=== PATIENT | male | born 1980 | race Caucasian/White ===

== ENCOUNTER 2023-05-21 15:17 | Emergency (ER) | payer OTHER, SELFPAY ==
[2023-05-21 15:40] VITALS: BP 131/79; PULSE 96; RESP 18; TEMP 36.2; O2SAT 98
--- NOTE | 2023-05-21 15:56 | ED.GENADULT ---
HPI - General Adult General Chief complaint: Ear Stated complaint: Dizzy, Light Headed Time Seen by Provider: 05/21/23 15:36 Source: patient Mode of arrival: ambulatory Limitations: no limitations History of Present Illness HPI narrative: 43-year-old male presented for complaint of dizziness for about 5 days. He describes the dizziness as constant, persistent, and unchanged with movement. States he feels like I'm in a fog. Denies room spinning. Endorses feeling out of breath with the exertion of moving a 4-hernandes, and reports occasional heartburn symptoms worse over the past few days as well. Taking Tums. Denies chest pain, palpitations, pain radiating to neck/jaw or back, diaphoresis, nausea, vomiting. Denies family hx of cardiac problems. States his school nurse told him he has fluid in the ear on exam. Endorses occasional crackles when swallowing. Denies ear pain, pressure, tinnitus, decreased hearing. Related Data Home Medications Medication Instructions Recorded Confirmed levothyroxine 175 mcg tablet 175 mcg PO DAILY 05/21/23 05/21/23 (Synthroid) lisinopril 10 1 tablet PO DAILY 05/21/23 05/21/23 mg-hydrochlorothiazide 12.5 mg tablet phentermine 37.5 mg capsule 37.5 mg PO DAILY 05/21/23 05/21/23 Allergies Allergy/AdvReac Type Severity Reaction Status Date / Time LIOTHYRONINE SODIUM Allergy Mild heart Uncoded 05/21/23 15:35 attack like symptoms Review of Systems Review of Systems: CONSTITUTIONAL: Denies body aches, fever, chills, or sweats. EYES: Denies visual changes, redness, or discharge. ENT: Denies rhinorrhea, congestion, sore throat, or otalgia. CARDIOVASCULAR: Denies chest pain, palpitations, or edema. RESPIRATORY: Denies cough or dyspnea. GASTROINTESTINAL: Reports heartburn Denies abdominal pain, nausea, vomiting, or diarrhea. SKIN: Denies rash, itching, or wounds. MUSCULOSKELETAL: Denies back pain, joint pain, or myalgia. NEUROLOGIC: Endorses dizziness Denies headache, numbness, tingling, or weakness. PSYCH: Endorses anxiety. All systems reviewed & are unremarkable except as noted in HPI and below PMFSH Past Medical History Medical History (Updated 05/21/23 @ 16:19 by Cathy Valentin, FELISHA) Fibromyalgia Hypertension Hypothyroid Comments At time of signature, I have reviewed and agree with nursing past medical, surgical, social and family history unless otherwise noted. Please see nursing chart for further information. There is no relevant family history pertinent to the presenting complaint Exam Narrative: GENERAL: Well-appearing, and in no acute distress. HEAD: Normocephalic, atraumatic. EYES: EOMI. PERRLA. No redness or drainage. Conjunctivae normal. ENT: Mucous membranes pink and moist. No rhinorrhea. TMs normal bilaterally. Throat normal. Uvula midline. NECK: Normal AROM. Supple. No lymphadenopathy. CHEST: Clear to auscultation. HEART: Regular rate and rhythm. No murmur appreciated. Normal peripheral pulses. EXTREMITIES: Normal range of motion. No edema. SKIN: Warm, dry, no rash. Capillary refill normal. Normal skin turgor. NEURO: No focal deficits. Alert and oriented x3. Gait steady. PSYCH: Normal affect. Course Course Emergency Course: Patient is aware of diagnosis, understands and agrees to treatment plan. Anticipatory guidance given. Patient agrees to follow-up as directed and is aware of reasons to seek care at the emergency department. Portions of this record may have been created with voice recognition software Level of Care: Express Care Visit Vital Signs Vital signs: Vital Signs Temperature 97.1 F L 05/21/23 15:40 Pulse Rate 96 05/21/23 15:40 Respiratory Rate 18 05/21/23 15:40 Blood Pressure 131/79 05/21/23 15:40 Pulse Oximetry 98 05/21/23 15:40 Oxygen Delivery Room Air 05/21/23 15:40 Temperature 97.1 F L 05/21/23 15:40 Pulse Rate 96 05/21/23 15:40 Respiratory Rate 18 05/21/23 15:40 B
== END 2023-05-21 16:00 | disposition left against medical advice (07) ==
PROVIDERS: Emergency Provider Nurse Practitioner Family; PCP Internal Medicine
DX: R42 Dizziness and giddiness (principal); M79.7 Fibromyalgia; I10 Essential (primary) hypertension; E03.9 Hypothyroidism, unspecified
CPT/HCPCS: 99213; G0463

== ENCOUNTER 2023-08-13 09:10 | Emergency (ER) | payer OTHER, SELFPAY ==
[2023-08-13 09:35] VITALS: BP 128/83; PULSE 92; RESP 18; TEMP 36.4; O2SAT 97
--- NOTE | 2023-08-13 10:01 | ED.URI ---
HPI - URI/Sore Throat General Chief Complaint: Upper Respiratory Infection Stated Complaint: Cough, congestion History of Present Illness HPI Narrative: Pt is a 43 y/o male, presents to with one week hx of sinus pressure, purulent nasal discharge, ear pressure and a spasmodic cough for the past 5 days. He denies associated fevers or chills. He has no chest pain, SOB, abdominal pain, NVDC or urinary symptoms. He is taking OTC medications without relief, prompting his visit Related Data Home Medications Medication Instructions Recorded Confirmed levothyroxine 175 mcg tablet 175 mcg PO DAILY 05/21/23 08/13/23 (Synthroid) lisinopril 10 1 tablet PO DAILY 05/21/23 08/13/23 mg-hydrochlorothiazide 12.5 mg tablet Allergies Allergy/AdvReac Type Severity Reaction Status Date / Time LIOTHYRONINE SODIUM Allergy Mild heart Uncoded 08/13/23 09:41 attack like symptoms Review of Systems ENT: Comments: refer to [facility] Past Medical History Medical History Fibromyalgia Hypertension Hypothyroid Exam Const: General: healthy appearing, no acute distress and alert Nutritional Appearance: well nourished Orientation/consciousness: patient oriented x3 Limitations: no limitations HENMT: Head: normal to inspection Ears: TM abnormal with fluid behind the TM (serous pattern bilaterally ) Face/Nose/Sinus: Normal external nose present and Normal nares present Face and sinus: normal facial exam Mouth: Yes Normal oral and palatal mucosa present Throat: posterior oropharynx normal and uvula midline Eyes: Conjunctivae: conjunctivae normal Pupils: Equal, round and reactive pupils present EOM: EOMs intact bilaterally Direct Ophthalmoscopy: no photophobia Neck: Neck: normal visual inspection, no lymphadenopathy and no meningeal signs Chest: Chest palpation & inspection: normal inspection of the chest Resp: Effort & Inspection: normal respiratory effort Auscultation: clear to auscultation bilaterally Other: pt has a spasmodic cough, harsh and occasionally productive during exam Cardio: Rate: regular rate Rhythm: regular rhythm Course Course Level of Care: Express Care Visit ([id number]) Vital Signs Vital signs: Vital Signs Temperature 36.4 C L 08/13/23 09:35 Pulse Rate 92 08/13/23 09:35 Respiratory Rate 18 08/13/23 09:35 Blood Pressure 128/83 08/13/23 09:35 Pulse Oximetry 97 08/13/23 09:35 Oxygen Delivery Room Air 08/13/23 09:35 Temperature 36.4 C L 08/13/23 09:35 Pulse Rate 92 08/13/23 09:35 Respiratory Rate 18 08/13/23 09:35 Blood Pressure 128/83 08/13/23 09:35 Pulse Oximetry 97 08/13/23 09:35 Oxygen Delivery Room Air 08/13/23 09:35 MDM - URI/Sore Throat MDM Narrative Medical decision making narrative: plan to treat empirically for sinusitis, bronchitis with oral abx, oral steorids and cough suppressant. FU with PCP in 3 days if symptoms are not resolving. Differential Diagnosis Differential diagnosis: Likely upper respiratory infection, sinusitis and bronchitis Discharge Plan Discharge Clinical Impression: Bronchitis Sinusitis Qualifiers: Sinusitis location: frontal Chronicity: acute Recurrence: non-recurrent Qualified Code(s): J01.10 - Acute frontal sinusitis, unspecified Patient Disposition: Home, Self-Care Condition: Stable Instructions: Antibiotic Form, Sinusitis (ED), Acute Bronchitis (ED) Additional Instructions: START AND COMPLETE ORAL ANTIBIOTICS AND ORAL STEROIDS DIRECTED, USE COUGH SUPPRESSANT FOR ADDED SYMPTOM RELIEF. SEE YOUR DOCTOR IN 3-5 DAYS IF SYMPTOMS ARE NOT IMPROVING. Prescriptions: New amoxicillin-pot clavulanate 875-125 mg tablet 1 tablet PO Q12H Qty: 20 0RF prednisone 20 mg tablet 40 mg PO DAILY 5 Days Qty: 10 0RF promethazine-DM 6.25-15 mg/5 mL syrup 5 ml PO Q4-6H PRN (Reason: cough) Qty: 118 0RF No Action
== END 2023-08-13 10:55 | disposition home or self-care (01) ==
PROVIDERS: Emergency Provider Nurse Practitioner Family; PCP Internal Medicine
DX: J40 Bronchitis, not specified as acute or chronic (principal); J01.10 Acute frontal sinusitis, unspecified; M79.7 Fibromyalgia; I10 Essential (primary) hypertension; E03.9 Hypothyroidism, unspecified
CPT/HCPCS: 99213; G0463